=== PATIENT | male | born 1985 | race Caucasian/White ===

== ENCOUNTER 2023-10-26 14:45 | Outpatient (CLI) | payer BC, SELFPAY | END 2023-10-26 14:46 | disposition home or self-care (01) | PROVIDERS: PCP Nurse Practitioner Family; Referring Provider Nurse Practitioner Family; Visit Provider Nurse Practitioner Family | DX: R30.0 Dysuria (principal) | CPT/HCPCS: 80053; 81015; 85025; 87086 ==

== ENCOUNTER 2023-11-04 08:33 | Outpatient (CLI) | payer BC, SELFPAY ==
--- NOTE | 2023-11-04 09:00 | CRLHL7_ITS ---
For Patients: As a result of the Century Cures Act, medical imaging exams and procedure reports are released immediately into your electronic medical record. You may view this report before your referring provider. If you have questions, please contact your health care provider. INDICATION: Left abdominal pain. TECHNIQUE: Volumetric helical scanning of the abdomen and pelvis was performed with 100 cc of Omnipaque 350 contrast material IV. Coronal and sagittal reconstructions were obtained. COMPARISON: None. FINDINGS: There is no evidence of bowel obstruction or inflammation. The liver is normal in size, shape and attenuation. The bile ducts are within normal limits. The spleen, adrenal glands and pancreas are negative. The kidneys are unremarkable except for a 5 mm left renal collecting system stone and the number of 2 mm right renal collecting system stones. No lymphadenopathy is evident. No free fluid is demonstrated. The prostate is normal. The lung bases are essentially clear, and heart size is normal. IMPRESSION: 1. Etiology of left abdominal pain not evident. 2. Small renal collecting system stones bilaterally, as above. Please note that all CT scans at this facility use dose modulation, iterative reconstruction, and/or weight-based dosing when appropriate to reduce radiation dose to as low as reasonably achievable. Dictated by Guilherme Mendosa MD @ 11/04/2023 11:49:11 AM (Electronically Signed)
== END 2023-11-04 08:34 | disposition home or self-care (01) ==
LOC: CT 08:34
PROVIDERS: PCP Nurse Practitioner Family; Visit Provider Nurse Practitioner Family
DX: R10.9 Unspecified abdominal pain (principal); N20.0 Calculus of kidney; R30.0 Dysuria
CPT/HCPCS: 74177; Q9967